=== PATIENT | female | born 1990 | race Caucasian/White ===

== ENCOUNTER 2017-02-18 19:04 | Emergency (ER) | payer OTHER ==
[~2017-02-18] VITALS: Ht 165.1 cm; Wt 75.4 kg
[2017-02-18 19:08] VITALS: TEMP 36.8; Ht 165.1 cm; Wt 75.4 kg
[2017-02-18] MEDS ORDERED: SODIUM CHLORIDE 0.9% 1000ML 1,000 ML IV ONE (19:29)
[2017-02-18] MEDS ORDERED: SODIUM CHLORIDE 0.9% 1000ML 1,000 ML IV STA (19:29)
[2017-02-18 19:56] LABS: BASO % 0.5 %; BASO ABS # 0.04 K/uL (0-0.2); COMPLETE YES; IG% 0.3 %; LYMPH % 38.9 %; LYMPH ABS # 3.09 K/uL (1.2-3.4); MEAN CELL VOLUME 88.8 fL (80-100); MEAN CORPUSCULAR HEMOGLOBIN 29.2 pg (25-34); MEAN CORPUSCULAR HGB CONC 32.9 g/dl (32-36); MEAN PLATELET VOLUME 11.8 fL (7.4-10.4); MONO % 8.7 %; NEUT % 49.6 %; PLATELET COUNT 180 K/uL (130-400); RED BLOOD COUNT 4.73 M/uL (4.2-5.4); WHITE BLOOD COUNT 7.94 K/uL (4.8-10.8)
[2017-02-18] MEDS ORDERED: PRENTAB26 PO (20:00)
[2017-02-18 20:20] LABS: CALCIUM 8.9 mg/dl (8.5-10.1); CREATININE 0.72 mg/dl (0.60-1.20)
--- NOTE | 2017-02-18 20:50 | DIAGNOSTIC IMAGING REPORT ---
LIMITED (US) CLINICAL HISTORY: eval for ectopic, miscarriage pelvic pain TECHNIQUE: Ultrasound COMPARISON STUDY: None FINDINGS: Uterus is midline with a greatest dimension of 8.5 cm. Moderate endometrial thickening at 1.5 cm. No intrauterine gestational sac is identified. Right ovary measures 2.6 cm and demonstrates normal vascular flow. Left ovary measures 2.5 cm and contains a 2 cm corpus luteum cyst. Normal vascular flow is present. IMPRESSION: 1. No evidence for an intrauterine gestational sac. 2. Moderate endometrial thickening at 1.5 cm 3. 2 cm left ovarian corpus luteum cyst. The above report was generated using voice recognition software. It may contain grammatical, syntax or spelling errors. Electronically signed by: Stanislaw Davis M.D. 02/18/2017 8:48 PM Dictated Date/Time: 02/18/2017 8:47 PM
[2017-02-18] MEDS ORDERED: ACETAMINOPHEN 500 MG TAB PO STA (20:59)
--- NOTE | 2017-02-18 21:12 | EMERGENCY ROOM VISIT NOTE ---
History Report prepared by Gege: Kari Hector Under the Supervision of: Dr. Last Brennan M.D. First contact with patient: 19:18 Chief Complaint: VAGINAL BLEEDING Stated Complaint: VAG BLEEDING,LOWER ABD PAIN,POSS MISCARRIAGE History of Present Illness The patient is a 26 year old female who presents to the Emergency Room with complaints of persistent vaginal bleeding starting 45 minutes ago. The patient is 9 weeks . She had been spotting small amounts of brown blood for the past 2-3 days which she was told was normal. She has not yet had an ultrasound yet. Her blood type was tested and found to be O positive. She had not any symptoms of besides a missed period. She was at dinner today when she started bleeding through several pads. She is passing clots. She is unsure if she is passing tissue. She is feeling SOB which she attributes to feeling anxious. She has a history of anxiety. She is having lower abdominal pain. She denies any back pain, urinary symptoms, lightheadedness, dizziness, calf pain, or chest pain. She denies any trauma or falls. She has not been before. She denies any previous miscarriages or ectopic pregnancies. Her last menstrual period was December 13. She is taking vitamins. 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 She denies any IV drug use. She has had a cholecystectomy. She is not on any blood thinners. She took Tylenol before coming to the ED. Source of History: patient Onset: 45 minutes ago Position: other (vaginal) Symptom Intensity: several pads Quality: other (bleeding) Timing: other (persistent) Associated Symptoms: + SOB, + abdominal pain, No chest pain, No back pain, No urinary symptoms Note: Pt denies lightheadedness, dizziness, calf pain. Review of Systems See HPI for pertinent positives & negatives. A total of 10 systems reviewed and were otherwise negative. Past Medical & Surgical Surgical Problems: (1) S/P cholecystectomy Old medical records were reviewed. Nurse's notes were reviewed and I agree with. Family History No pertinent family history stated. Social History Smoking Status: Former Smoker Marital Status: single Occupation Status: employed Current/Historical Medications Scheduled Buprenorphine Hcl (Subutex), 1 TAB SL BID Multivit/Min/Iron/Fol Ac/Pren ( Vitamin), 1 TAB PO DAILY [Dha Epa], 800 MG PO DAILY Scheduled PRN Clonazepam (Klonopin), 1 TAB PO BID PRN for Anxiety/Agitation Allergies Uncoded Allergies: SULFA (Allergy, Mild, vomiting, 02/18/17) Physical Exam Vital Signs Date Time Temp Pulse Resp B/P (MAP) Pulse Ox O2 Delivery O2 Flow Rate FiO2 02/18/17 21:53 74 20 135/71 99 Room Air 02/18/17 21:07 76 20 137/77 100 Room Air 02/18/17 19:08 36.8 71 18 150/101 100 Room Air Physical Exam Very nicely to General: Non ill appearing young female in no acute distress. Well developed well nourished, breathing comfortably on room air. Normal speech HEENT: Normal cephalic atraumatic. Pupils are equal round and reactive to light. Extraocular movements are intact. Oropharynx is pink with moist mucous membranes. No swelling of the mouth lips or tongue. Neck: Supple with a midline trachea. No meningeal signs or stiffness, no JVD or bruits. No Stridor. Chest: Clear to auscultation bilaterally. No wheezes or rhonchi. No increased work of breathing. Heart: regular rate and rhythm. Abdomen: Soft nontender, nondistended without rebound guarding or rigidity. Extremities: No cyanosis clubbing or edema. No calf tenderness or assymetry Spine/Back. Non tender to palpation. No CVA tenderness Skin: Good turgor without rashes. Neurologic exam: Cranial nerves two through 12 are intact. Motor and sensation are intact and symmetrical throughout. Medical Decision & Procedures ER Provider Diagnostic Interpretation: Radiology results as stated below per my review and radiologist interpretation: LIMITED (US) CLINICAL HISTORY: eval for ectopic, miscarriage pelvic pain TECHNIQUE: Ultrasound COMPARISON STUDY: None FINDINGS: Uterus is midline with a greatest dimension of 8.5 cm. Moderate endometrial thickening at 1.5 cm. No intrauterine gestational sac is identified. Right ovary measures 2.6 cm and demonstrates normal vascular flow. Left ovary measures 2.5 cm and contains a 2 cm corpus luteum cyst. Normal vascular flow is present. IMPRESSION: 1. No evidence for an intrauterine gestational sac. 2. Moderate endometrial thickening at 1.5 cm 3. 2 cm left ovarian corpus luteum cyst. The above report was generated using voice recognition software. It may contain grammatical, syntax or spelling errors. Electronically signed by: Stanislaw Davis M.D. 02/18/2017 8:48 PM Dictated Date/Time: 02/18/2017 8:47 PM Laboratory Results 02/18/17 19:45 Red Blood Count 4.73, Mean Corpuscular Volume 88.8, Mean Corpuscular Hemoglobin 29.2, Mean Corpuscular Hemoglobin Concent 32.9, Mean Platelet Volume 11.8, Neutrophils (%) (Auto) 49.6, Lymphocytes (%) (Auto) 38.9, Monocytes (%) (Auto) 8.7, Eosinophils (%) (Auto) 2.0, Basophils (%) (Auto) 0.5, Neutrophils # (Auto) 3.94, Lymphocytes # (Auto) 3.09, Monocytes # (Auto) 0.69, Eosinophils # (Auto) 0.16, Basophils # (Auto) 0.04 02/18/17 19:45 Test 02/18/17 19:45 White Blood Count 7.94 K/uL (4.8-10.8) Red Blood Count 4.73 M/uL (4.2-5.4) Hemoglobin 13.8 g/dL (12.0-16.0) Hematocrit 42.0 % (37-47) Mean Corpuscular Volume 88.8 fL (80-100) Mean Corpuscular Hemoglobin 29.2 pg (25-34) Mean Corpuscular Hemoglobin Concent 32.9 g/dl (32-36) Platelet Count 180 K/uL (130-400) Mean Platelet Volume 11.8 fL (7.4-10.4) Neutrophils (%) (Auto) 49.6 % Lymphocytes (%) (Auto) 38.9 % Monocytes (%) (Auto) 8.7 % Eosinophils (%) (Auto) 2.0 % Basophils (%) (Auto) 0.5 % Neutrophils # (Auto) 3.94 K/uL (1.4-6.5) Lymphocytes # (Auto) 3.09 K/uL (1.2-3.4) Monocytes # (Auto) 0.69 K/uL (0.11-0.59) Eosinophils # (Auto) 0.16 K/uL (0-0.5) Basophils # (Auto) 0.04 K/uL (0-0.2) RDW Standard Deviation 45.4 fL (36.4-46.3) RDW Coefficient of Variation 14.0 % (11.5-14.5) Immature Granulocyte % (Auto) 0.3 % Immature Granulocyte # (Auto) 0.02 K/uL (0.00-0.02) Anion Gap 7.0 mmol/L (3-11) Est Creatinine Clear Calc Drug Dose 118.2 ml/min Estimated GFR () 132.1 Estimated GFR (Non- 114.0 BUN/Creatinine Ratio 16.0 (10-20) Calcium Level 8.9 mg/dl (8.5-10.1) Human Chorionic Gonadotropin, Quant 7665 mIU/mL Laboratory studies as stated above per my review. Medications Administered Medications (Trade) Dose Ordered Sig/Zainab Route Start Time Stop Time Status Last Admin Dose Admin Sodium Chloride 1,000 ml @ 999 mls/hr Q1H1M STAT IV 02/18/17 19:29 02/18/17 20:29 DC 02/18/17 19:29 999 MLS/HR Sodium Chloride 1,000 ml @ 150 mls/hr Q6H40M ONCE IV 02/18/17 19:29 02/18/17 23:07 DC 02/18/17 19:29 150 MLS/HR Acetaminophen (Tylenol Tab) 1,000 mg NOW STAT PO 02/18/17 20:59 02/18/17 21:00 DC 02/18/17 21:05 1,000 MG Clonazepam (Klonopin Tab) 0.5 mg NOW STAT PO 02/18/17 21:51 02/18/17 21:52 DC 02/18/17 21:57 0.5 MG ED Course 1922: Past medical records reviewed. The patient was evaluated in room A3, and a complete history and physical examination were performed. 1928: NSS 1000 ml @ 150 mls/hr IV, NSS 1000 ml @ 999 mls/hr IV. 2001: I reevaluated the patient. She is going to ultrasound. 2035: I reevaluated the patient. She is still at ultrasound. I spoke with her family. 2053: I reevaluated the patient. I ordered some Tylenol for her. She passed a large clot while in the bathroom at ultrasound. 2058: Acetaminophen 1000 mg PO. 2100: I spoke with a nurse working for Dr. Lee, [facility] [employer] [facility]. [place]. Lee is currently in a procedure. She will come down to see the patient when she is done. 2116: I discussed the patient's case with Dr. Lee. She is at bedside examining the patient. 2137: Dr. Lee says that on her exam the cervix closed and the patient had passed some tissue. She thinks that the patient is having a miscarriage. She can be discharged home. She recommends that the patient come back on Tuesday for a quant HCG. 2140: I reevaluated the patient. She is resting comfortably. I discussed the results and treatment plan with her. She verbalized agreement of the treatment plan. The patient was discharged home. 2150: Clonazepam 0.5 mg PO. Medical Decision Differentials include, but are not limited to; vaginal bleeding, miscarriage, ectopic , infection, anemia. This patient comes in as described above. She was placed in room A3. She is here for treatment and evaluation of vaginal bleeding. She is approximately 9 weeks . She is from out of [facility]. She is on vitamins. This started this evening. She's passed several large clots. IV access established and blood work was obtained. She is not anemic. she's been hemodynamically stable. Her quantitative was in the 7000 range. Ultrasound which showed no intrauterine given gestation. While she was he in ultrasound she passed a large clot which may have been tissue. She has been typed and screened. She tells me she is Rh+ which was confirmed tonight. I have consulted [employer] SALES REPRESENTATIVE to see this patient. I suspect she is having a miscarriage and may need follow-up this weekend or possibly a D&C. The bookmobile driver saw her in the ER and said her cervix is closed there was some tissue and she believes that she passed her miscarriage. She does want her to return here on Tuesday to get a follow-up quantitative hCG dictating an confirm that it is going down. The patient is asked to be started back on her Klonopin 0.5 mg when necessary. She was given a dose here as well as a small prescription for just 5. She was warned that this can make her drowsy and do not take before drinking, driving, working. She was encouraged return if: increasing pain or bleeding, worsening of symptoms , any new problems or concerns. Follow-up here on Tuesday for repeat of her quantitative beta hCG and then follow-up with her bookmobile driver when she gets home on Tuesday. The patient and her family were happy with plan she was discharged to home. Medication Reconcilliation Current Medication List: was personally reviewed by me Blood Pressure Screening Patient's blood pressure: Elevated blood pressure Blood pressure disposition: Elevated BP felt to be situational Consults Time Called: 2055 Consulting Physician: Dr. Lee, [facility] [facility] [employer] Returned Call: 2099 I spoke with a nurse working for her. Dr. Lee is currently in a procedure. She will come down to see the patient when she is done. Impression Primary Impression: Miscarriage Additional Impression: Vaginal bleeding Scribe Attestation The scribe's documentation has been prepared under my direction and personally reviewed by me in its entirety. I confirm that the note above accurately reflects all work, treatment, procedures, and medical decision making performed by me. Departure Information Dispostion Home / Self-Care Prescriptions Clonazepam (KLONOPIN) 0.5 Mg Tab 1 TAB PO BID Y for Anxiety/Agitation for 3 Days, #6 TAB Prov: Last Brennan M.D. 02/18/17 Referrals No Doctor, Assigned (PCP) Forms HOME CARE DOCUMENTATION FORM, IMPORTANT VISIT INFORMATION, WORK / SCHOOL INSTRUCTIONS Patient Instructions My [facility] Additional Instructions Rest. Drink plenty of fluids. Return if: Increasing pain or bleeding, worsening symptoms, any new problems or concerns. Follow-up in the emergency department here on Tuesday morning to have a quantitative beta hCG rechecked prior to going back to [place] For pain, Use ibuprofen 400 mg every 6 hours as needed, take with food For anxiety, may use Klonopin 0.5 mg every 12 hours as needed Klonopin may make you drowsy and do not take before drinking, driving, working Follow-up with your bookmobile driver when you get home Problem Qualifiers
[2017-02-18] MEDS ORDERED: [UNRECOGNIZED DRUG - OTHER] PO (21:48)
[2017-02-18] MEDS ORDERED: BUPR8SUB19 SL (21:48)
[2017-02-18] MEDS ORDERED: CLONAZEPAM 0.5 MG TAB PO STA (21:51)
[2017-02-18 21:53] VITALS: BP 135/71; PULSE 74; O2SAT 99
[2017-02-18] MEDS ORDERED: CLON0.5T3 PO (21:55)
--- NOTE | 2017-02-19 00:19 | Medical Consult ---
Consultation Date of Consultation: Feb 19, 2017. Attending Physician: Dr Brennan Reason for Consultation: 9wk miscarriage History of Present Illness Patient is 26yo at 9 weeks gestation per her report. She is from [place], in town visiting her brother, who teaches at [employer]. She has been experiencing heavy bleeding today, with passage of clots and tissue. She underwent ultrasound today in the ER that showed no products of conception, normal appearing adnexae. She actively passed clot/tissue while at ultrasound and I was asked by Dr Brennan to evaluate this patient on consultation due to this heavy bleeding. Patient states has been complicated by subutex use and Lyme disease over the summer that was treated with doxycycline. Past Medical/Surgical History Medical Problems: (1) Miscarriage Status: Acute (2) Vaginal bleeding Status: Acute Social History Smoking Status: Former Smoker Marital Status: single Occupation Status: employed Allergies Uncoded Allergies: SULFA (Allergy, Mild, vomiting, 02/18/17) Review of Systems Constitutional: No problem reported Eyes: No problem reported ENT: No problem reported Respiratory: No problem reported Cardiovascular: No problem reported Abdomen: No problem reported Musculoskeletal: No problem reported Genitourinary - Female: + vaginal bleeding, + Neurologic: No problem reported Psychiatric: + anxiety, + substance abuse (history of abuse, currently maintained on subutex, no s/s withdrawal) Endocrine: No problem reported Hematologic / Lymphatic: No problem reported Integumentary: No problem reported Allergic / Immunologic: No problem reported Physical Exam Date Time Temp Pulse Resp B/P (MAP) Pulse Ox O2 Delivery O2 Flow Rate FiO2 02/18/17 21:53 74 20 135/71 99 Room Air 02/18/17 21:07 76 20 137/77 100 Room Air 02/18/17 19:08 36.8 71 18 150/101 100 Room Air General Appearance: WD/WN, no apparent distress Respiratory/Chest: no respiratory distress Cardiovascular: regular rate, rhythm Abdomen/GI: non tender, soft Genitourinary - Female: external genitalia normal, normal pelvic exam, + pertinent finding (cervix closed, small amount of tissue removed easily with ring forceps, small amount of blood in vault. No continued bleeding after removal of tissue) Extremities/Musculoskelatal: normal inspection Neurologic/Psych: alert, oriented x 3 Skin: normal color, warm/dry Laboratory Results Last 24 Hours Test 02/18/17 19:45 White Blood Count 7.94 K/uL Red Blood Count 4.73 M/uL Hemoglobin 13.8 g/dL Hematocrit 42.0 % Mean Corpuscular Volume 88.8 fL Mean Corpuscular Hemoglobin 29.2 pg Mean Corpuscular Hemoglobin Concent 32.9 g/dl Platelet Count 180 K/uL Mean Platelet Volume 11.8 fL Neutrophils (%) (Auto) 49.6 % Lymphocytes (%) (Auto) 38.9 % Monocytes (%) (Auto) 8.7 % Eosinophils (%) (Auto) 2.0 % Basophils (%) (Auto) 0.5 % Neutrophils # (Auto) 3.94 K/uL Lymphocytes # (Auto) 3.09 K/uL Monocytes # (Auto) 0.69 K/uL Eosinophils # (Auto) 0.16 K/uL Basophils # (Auto) 0.04 K/uL RDW Standard Deviation 45.4 fL RDW Coefficient of Variation 14.0 % Immature Granulocyte % (Auto) 0.3 % Immature Granulocyte # (Auto) 0.02 K/uL Sodium Level 140 mmol/L Potassium Level 4.0 mmol/L Chloride Level 105 mmol/L Carbon Dioxide Level 28 mmol/L Anion Gap 7.0 mmol/L Blood Urea Nitrogen 12 mg/dl Creatinine 0.72 mg/dl Est Creatinine Clear Calc Drug Dose 118.2 ml/min Estimated GFR () 132.1 Estimated GFR (Non- 114.0 BUN/Creatinine Ratio 16.0 Random Glucose 86 mg/dl Calcium Level 8.9 mg/dl Human Chorionic Gonadotropin, Quant 7665 mIU/mL Assessment & Plan Complete . All products appear to have passed, as ultrasound is negative, and patient's cervix is now closed and she is no longer having heavy bleeding at the completion of my exam. bHCG is 7665, recommend that patient repeat this in 48h to be sure it is dropping, prior to leaving to travel back home. This way, the specimen will be processed in the same lab as her previous value. She is O+ blood type, no need for rhogam. Patient has been in communication with her OBGYN in [place] - she will followup there this week. Reviewed that if patient bleeds heavily - soaking greater than 1 pad per hour for multiple hours, feels weak/dizzy, or has any other emergent symptoms - she is to return to the ER.
== END 2017-02-18 22:16 | disposition home or self-care (01) ==
LOC: C.EDB 19:05 → C.EDA 22:16
DX: O03.9 Complete or unspecified spontaneous abortion without complication (principal); Z3A.09 9 weeks gestation of pregnancy; R06.02 Shortness of breath; F41.9 Anxiety disorder, unspecified; R10.30 Lower abdominal pain, unspecified; Z79.899 Other long term (current) drug therapy; Z87.891 Personal history of nicotine dependence

== ENCOUNTER 2017-02-20 12:46 | Emergency (ER) | payer OTHER ==
[~2017-02-20] VITALS: Ht 165.1 cm; Wt 75.8 kg
[~2017-02-20 12:46] MED LIST: BUPR8SUB19 SL; CLON0.5T3 PO; PRENTAB26 PO; [UNRECOGNIZED DRUG - OTHER] PO
[2017-02-20 12:49] VITALS: TEMP 36.9; Ht 165.1 cm; Wt 75.8 kg
--- NOTE | 2017-02-20 13:07 | EMERGENCY ROOM VISIT NOTE ---
History Report prepared by Gege: Keegan Barlow Under the Supervision of: Dr. Juaquin Ocampo M.D. First contact with patient: 12:55 Chief Complaint: ABNORMAL LABS Stated Complaint: NEED AN HCG TEST History of Present Illness The patient is a 26 year old female who presents to the Emergency Room for an HCG laboratory test. She experienced a miscarriage two days ago with her first . She was referred here today for a repeat HCG level test because she is travelling back to [place] today. Two days ago, she received an US procedure that showed that all of the contents of the had been expelled. She is experiencing some abdominal cramping and continued mild bleeding. She has a history of abusing painkillers, but has been clean for over 7 years. She is on Suboxone for maintenance. She has a past medical history of a cholecystectomy. She denies any fevers, shortness of breath, chills, or leg cramping. Source of History: patient Onset: two days ago Position: other () Symptom Intensity: moderate Quality: other (Miscarriage) Timing: resolved Associated Symptoms: + abdominal pain (cramping), No fevers, No chills, No SOB Note: She denies any leg cramping. Review of Systems All systems have been listed, reviewed, and are negative other than those previously mentioned. Please see Additional Medical History Sheet. Past Medical & Surgical Surgical Problems: (1) S/P cholecystectomy Family History Patient reports no known family medical history. Social History Smoking Status: Never Smoker Smokeless Tobacco Use: No Drug Use: none Marital Status: single Housing Status: lives with family Occupation Status: employed Current/Historical Medications Scheduled Buprenorphine Hcl (Subutex), 8 MG SL BID Scheduled PRN Clonazepam (Klonopin), 1 TAB PO BID PRN for Anxiety/Agitation Ibuprofen (Ibuprofen), 600 MG PO Q6H PRN for Pain Allergies Coded Allergies: Sulfa Antibiotics (Unverified Allergy, Unknown, ., 02/20/17) Physical Exam Vital Signs Date Time Temp Pulse Resp B/P (MAP) Pulse Ox O2 Delivery O2 Flow Rate FiO2 02/20/17 15:09 75 20 121/73 98 Room Air 02/20/17 12:49 36.9 73 18 150/85 98 Room Air Physical Exam GENERAL: Patient awake, alert, oriented x 3. Patient follows commands. Patient does not appear toxic. Patient is adequately hydrated and well- nourished. SKIN: No erythema, pallor, cyanosis or rash HEENT: Normal head, pupils equal, reactive to light and accommodation. LUNGS: Clear to auscultation. No wheezes, no rales, no rhonchi. HEART: No murmurs. No gallops. No rubs ABDOMEN: No masses, no rebound, no hepatomegaly or splenomegaly. EXTREMITIES: No signs of trauma. No pedal or pretibial edema. No calf or thigh tenderness. NEUROLOGIC: Cranial nerves II-XII within normal limits. No gross motor sensory function deficits. Medical Decision & Procedures Laboratory Results 02/20/17 13:11 Test 02/20/17 13:11 Red Blood Count 4.70 M/uL (4.2-5.4) Mean Corpuscular Volume 88.5 fL (80-100) Mean Corpuscular Hemoglobin 29.1 pg (25-34) Mean Corpuscular Hemoglobin Concent 32.9 g/dl (32-36) RDW Standard Deviation 46.5 fL (36.4-46.3) RDW Coefficient of Variation 14.2 % (11.5-14.5) Mean Platelet Volume 11.9 fL (7.4-10.4) Human Chorionic Gonadotropin, Quant 1675 mIU/mL Laboratory results as stated above per my review. ED Course 1255: Past medical records reviewed. The patient was evaluated in room C8. A complete history and physical examination was performed. 1445: Upon reevaluation, the patient appeared to have improvement of her symptoms. I discussed today's findings with her. She verbalized agreement of the treatment plan. She was discharged home. Medical Decision I considered multiple differential diagnoses including complete AB, incomplete AB, and anemia. Patient had a repeat quantitative beta hCG as requested. It is now much lower than it was 2 days ago. This is consistent with a complete AB. The patient has minimal pelvic cramping and a small amount of vaginal bleeding. Hemoglobin and hematocrit were not low. The patient will follow-up with her director gift. Medication Reconcilliation Current Medication List: was personally reviewed by me Blood Pressure Screening Patient's blood pressure: Elevated blood pressure Blood pressure disposition: Elevated BP felt to be situational Impression Primary Impression: Complete Scribe Attestation The scribe's documentation has been prepared under my direction and personally reviewed by me in its entirety. I confirm that the note above accurately reflects all work, treatment, procedures, and medical decision making performed by me. Departure Information Dispostion Home / Self-Care Referrals No Doctor, Assigned (PCP) Forms HOME CARE DOCUMENTATION FORM, IMPORTANT VISIT INFORMATION, WORK / SCHOOL INSTRUCTIONS Patient Instructions My [facility] Additional Instructions Off work 02/21 and 02/22. Follow-up with your director gift 02/22.
[2017-02-20 13:30] LABS: HEMATOCRIT 41.6 % (37-47); MEAN CELL VOLUME 88.5 fL (80-100); MEAN CORPUSCULAR HEMOGLOBIN 29.1 pg (25-34); MEAN CORPUSCULAR HGB CONC 32.9 g/dl (32-36); MEAN PLATELET VOLUME 11.9 fL (7.4-10.4); PLATELET COUNT 174 K/uL (130-400); WHITE BLOOD COUNT 6.16 K/uL (4.8-10.8)
[2017-02-20] MEDS ORDERED: IBUP1CAP9 PO (13:45)
[2017-02-20 15:09] VITALS: BP 121/73; PULSE 75; O2SAT 98
== END 2017-02-20 16:35 | disposition home or self-care (01) ==
LOC: C.EDB 12:47 → C.EDC 16:35
DX: O03.9 Complete or unspecified spontaneous abortion without complication (principal)